=== PATIENT | male | born 1940 | race American Indian/Alaskan Native ===

== ENCOUNTER 2017-03-15 06:30 | Emergency (ER) | payer MEDICARE ==
[2017-03-15 07:23] LABS: Eosinophils % (Auto) 1.2 % (0.0-4.3); Hematocrit 45.4 % (35.5-45.6); Hemoglobin 14.7 gm/dl (11.8-15.2); Mean Corpuscular HGB Conc 33 % (32-34); Mean Corpuscular Hemoglobin 30 pg (28-32); Mean Corpuscular Volume 93 fl (84-94); Platelet Count 127 K/mm3 (140-440); Red Blood Count 4.89 M/mm3 (3.65-5.03); Red Cell Distribution Width 14.4 % (13.2-15.2); White Blood Count 5.3 K/mm3 (4.5-11.0)
[2017-03-15 07:30] LABS: INR 0.98 (0.87-1.13)
[2017-03-15 07:31] LABS: Partial Thromboplastin Time 27.9 Sec. (24.2-36.6)
[2017-03-15 07:37] LABS: Anion Gap 18 mmol/L; BUN/Creatinine Ratio 15.45; Blood Urea Nitrogen 17 mg/dL (9-20); Calcium 9.1 mg/dL (8.4-10.2); Carbon Dioxide 25 mmol/L (22-30); Chloride 102.6 mmol/L (98-107); Glucose 97 mg/dL (75-100); Potassium 4.2 mmol/L (3.6-5.0); Sodium 141 mmol/L (137-145)
[2017-03-15 09:14] LABS: Creatine Kinase MB 2.6 ng/mL (0.0-4.0)
[2017-03-15 09:16] LABS: C-Reactive Protein 0.1 mg/dL (0.00-1.30)
[2017-03-15 17:42] LABS: Bilirubin,Urine NEG (Negative); Blood,Urine NEG (Negative); Ketones,Urine NEG (Negative); Leukocyte Esterase,Urine NEG (Negative); Nitrite,Urine NEG (Negative); Protein,Urine <15 mg/dL mg/dL (Negative); RBC,Urine < 1.0 /HPF (0.0-6.0); Urobilinogen,Urine < 2.0 mg/dL (<2.0); WBC,Urine < 1.0 /HPF (0.0-6.0)
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
[2017-03-15 19:18] VITALS: BP 147/78
--- NOTE | 2017-03-15 19:51 | Cat Scan Report ---
FINAL REPORT EXAM: CT HEAD/BRAIN WO CON HISTORY: dizzy, hx of tingling TECHNIQUE: Standard unenhanced CT of the head at 5.0 millimeter axial increments. PRIORS: None. FINDINGS: The ventricular system is normal in size and configuration. There is no evidence for parenchymal volume loss. There is no evidence for mass lesion, mass effect, midline shift, acute intracranial hemorrhage, or acute ischemia/ infarction. No evidence for acute skull fracture is seen. No abnormality in the overlying scalp soft tissues is seen. Visualized paranasal sinuses are clear. IMPRESSION: Negative CT of the head. No acute intracranial process noted.
--- NOTE | 2017-03-16 09:32 | XRay Report ---
ROUTINE CHEST, TWO VIEWS: HISTORY: chest pain. The trachea, heart, mediastinal contour, lung roy and bony thorax are unremarkable. Sternotomy wires are noted indicating previous thoracic surgery, correlate with history. IMPRESSION: Unremarkable chest x-ray.
== END 2017-03-15 20:45 | disposition left against medical advice (07) ==
LOC: ED 06:30
DX: G45.9 Transient cerebral ischemic attack, unspecified (principal); I10 Essential (primary) hypertension; K21.9 Gastro-esophageal reflux disease without esophagitis; Z90.49 Acquired absence of other specified parts of digestive tract; Z88.2 Allergy status to sulfonamides; Z88.8 Allergy status to other drugs, medicaments and biological substances
CPT/HCPCS: 36415; 70450; 71020; 80048; 81001; 82140; 82550; 82553; 83880; 84484; 85025; 85610; 85730; 86140; 93005; 93010

== ENCOUNTER 2017-07-24 07:53 | Day surgery (SDC) | payer MEDICARE ==
[2017-07-24] MEDS ORDERED: NACL 0.9% 500 ML 500 ML IV SCH (09:00)
[2017-07-24] MEDS: XYLOCAINE 2% INFILTRATI ONE ×2 (10:59→11:10)
[2017-07-24] MEDS: VERSED ONE ×2 (10:59→11:00)
[2017-07-24] MEDS: SUBLIMAZE ONE ×2 (10:59→11:00)
[2017-07-24] MEDS: HEPARIN 10,000 UNITS/10 ML ONE ×2 (11:00→11:10)
[2017-07-24] MEDS: CALAN ONE ×2 (11:00→11:10)
[2017-07-24] MEDS: HEPARIN/NS 5000 UNIT/500ML(CATH LAB) 1,000 ML IR ONE ×3 (11:04→11:10)
[2017-07-24] MEDS: NITROGLYCERIN SYRINGE 3 ML ONE ×2 (11:05→11:10)
[2017-07-24] MEDS ORDERED: BENADRYL ONE (11:08)
--- NOTE | 2017-07-24 11:35 | Short Stay Summary ---
Short Stay Documentation Date of service: 07/24/17 - History H&P: obtained from office - Allergies and Medications Current Medications: Allergies diazepam [From Valium] Adverse Reaction (Verified 08/07/13 14:58) Shortness of Breath Iodinated Contrast Media - IV Dye Adverse Reaction (Verified 08/07/13 15:01) Itching Sulfa (Sulfonamide Antibiotics) Adverse Reaction (Verified 08/07/13 15:01) Itching thallium-201 [Thallium-201] Adverse Reaction (Verified 08/07/13 14:58) Shortness of Breath Home Medications Medication Instructions Recorded Confirmed Last Taken Type Zolpidem [Ambien] 10 mg PO HS 08/07/13 07/24/17 07/23/17 History LORazepam [Ativan] 1 mg PO QHS 08/13/13 07/24/17 07/23/17 History Aspirin [Adult Low Dose Aspirin EC] 81 mg PO DAILY 07/24/17 07/24/17 07/24/17 History Famotidine [Pepcid] 20 mg PO DAILY 07/24/17 07/24/17 07/23/17 History amLODIPine [Norvasc] 5 mg PO DAILY 07/24/17 07/24/17 07/24/17 History Active Medications Sodium Chloride (Nacl 0.9% 500 Ml) 500 mls @ 50 mls/hr IV DIRECT VERONICA Stop: 07/24/17 18:59 - Brief post op/procedure progress note Date of procedure: 07/24/17 Pre-op diagnosis: abnl stress Post-op diagnosis: other Procedure: see report Anesthesia: local Estimated blood loss: none Pathology: none - Disposition Condition at discharge: Good Disposition: DC-01 TO HOME OR SELFCARE - Discharge Diagnoses (1) Hypertension Status: Chronic Qualifiers: Hypertension type: essential hypertension Qualified Code(s): I10 - Essential (primary) hypertension (2) Abnormal stress ECG with treadmill Status: Resolved (3) SOB (shortness of breath) on exertion Status: Chronic Short Stay Discharge Plan Activity: advance as tolerated Diet: low fat, low cholesterol, low salt Follow up with: MELISSA SIBLEY JR, MD [Primary Care Provider] - 7 Days
[2017-07-24 13:00] VITALS: BP 129/72
--- NOTE | 2017-07-24 16:42 | Cardiac Catherization Report ---
LEFT HEART CATHETERIZATION CLINICAL INFORMATION: This is a 77-year-old gentleman with fatigue and abnormal treadmill stress test suggestive of ischemia with hypertension is here for a left heart catheterization. Left heart catheterization procedure was done via the right radial artery, sterile technique, local anesthesia, 6-Sud[place] radial sheath inserted. PROCEDURE FINDINGS: Left system engaged with JL3.5 catheter is a short left main that is patent. LAD is a large caliber vessel that is patent from proximally and distally. Diagonal 1 is a medium caliber vessel, patent. It wraps around LAD. Circumflex is a large dominant vessel that is patent from proximally and distally. Small OM1 and 2 are patent and left posterior descending artery has small cailber vessel. engaged with jr4 RCA is a nondominant [id number] caliber vessel patent. LV gram done in the [place] and [place] view shows normal LV function, LVEDP of 20 mmHg, LV is 135/22, and aortic is 134/70. No gradient across aortic valve. A 5-Sudanese catheters were taken over a guidewire, 6-[place]anese radial sheath was discontinued. Radial dressing applied. No hematoma. No bleeding. SUMMARY: 1. Left main, short patent. LAD, large patent. Circumflex, large patent. OM1 and 2 small patent. Left posterior descending small patent. Diagonal medium caliber patent. RCA is a small, nondominant, and patent. 2. Normal LV function. 3. Continue risk factor modification. Discussed this in detail with the patient and the patient's family. JOB# [id number] DIRK/RASHIDA THAKUR
== END 2017-07-24 14:00 | disposition home or self-care (01) ==
LOC: CATHLABREC 07:53
PROVIDERS: ATTEND Internal Medicine
DX: I10 Essential (primary) hypertension (principal); R94.39 Abnormal result of other cardiovascular function study; Z85.038 Personal history of other malignant neoplasm of large intestine; Z88.2 Allergy status to sulfonamides; Z88.8 Allergy status to other drugs, medicaments and biological substances
CPT/HCPCS: 93005; 93010; 93458; C1894; J1200; J1644; J2250; J2930; J3010; J7040; Q9967

== ENCOUNTER 2022-03-27 10:41 | Outpatient (CLI) | payer MEDICARE ==
--- NOTE | 2022-03-27 14:37 | Ultrasound Report ---
ULTRASOUND BLADDER INDICATION / CLINICAL INFORMATION: R94.4. Abnormal lab values COMPARISON: None available. FINDINGS: URINARY BLADDER: No significant abnormality. PRE-VOID VOLUME (mL): 174 mL POST-VOID VOLUME (mL): 12 mL ADDITIONAL FINDINGS: None. IMPRESSION: 1. No significant sonographic abnormality. Normal PVR. POST-VOID RESIDUAL (PVR) GUIDELINES < 50 mL = Normal PVR < 100 mL = Normal PVR in patients > 65 > 100 mL = Consider elevated PVR > 200-300 mL = Large PVR Scribed by: Carina Kapoor RDMS, SHYANNET, SHAHZAD Scribed: 03/27/2022 1:31 PM I have reviewed the images, agree with this report, and edited this report as needed. Signer Name: Brian Tang MD Signed: 03/27/2022 2:33 PM Workstation Name: [employer]
--- NOTE | 2022-03-27 14:44 | Ultrasound Report ---
ULTRASOUND RENAL INDICATION / CLINICAL INFORMATION: R94.4 I10. Abnormal lab values. COMPARISON: MRCP abdomen 08/13/2013. FINDINGS: RIGHT KIDNEY: Length = 8.8 cm. - Echogenicity: Normal. - Parenchymal Thickness: Mild thinning. - Hydronephrosis: None. - Cyst / Mass: None. - Stones: None seen. LEFT KIDNEY: Length = 9.4 cm. - Echogenicity: Normal. - Parenchymal Thickness: Mild thinning. - Hydronephrosis: Mild upper pole caliectasis. - Cyst / Mass: None. - Stones: None seen. URINARY BLADDER: No significant abnormality. Normal PVR. FREE FLUID: None. ADDITIONAL FINDINGS: None. IMPRESSION: 1. 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 2. Mild left upper pole caliectasis without sonographic evidence of obstruction. Scribed by: Carina Kapoor RDMS, RVT, SHAHZAD Scribed: 03/27/2022 1:33 PM I have reviewed the images, agree with this report, and edited this report as needed. Signer Name: Brian Tang MD Signed: 03/27/2022 2:40 PM Workstation Name: [facility]
== END 2022-03-27 10:42 | disposition home or self-care (01) ==
LOC: US 10:41
PROVIDERS: ATTEND Internal Medicine Nephrology
DX: N28.89 Other specified disorders of kidney and ureter (principal); R94.4 Abnormal results of kidney function studies; I10 Essential (primary) hypertension
CPT/HCPCS: 76770; 76857